=== PATIENT | female | born 1990 | race Caucasian/White ===

== ENCOUNTER 2016-08-21 13:26 | Emergency (ER) | payer BC, OTHER ==
[2016-08-21 13:42] VITALS: RESP 18; TEMP 98.2
--- NOTE | 2016-08-21 14:53 | ED ---
General Adult HPI - General Source: patient, RN notes reviewed Mode of arrival: ambulatory Limitations: no limitations <Kimberly Bailey - Last Filed: 08/21/16 15:31> <Rashaad Mckenna - Last Filed: 08/22/16 01:57> - General Chief complaint: ENT Stated complaint: cough, upper respiratory Time Seen by Provider: 08/21/16 14:43 - History of Present Illness Initial comments: This is a 26-year-old female presents with cough, congestion and a sore throat since mid-June. Patient states she is treated with amoxicillin but her symptoms have persisted. Patient states the cough is productive. Patient denies any fever/chills. Patient complains of ear fullness and mild headache. Patient denies any unexplained weight loss, fever/chills or drenching night sweats. Patient does admit to mild fatigue. Patient denies any chance of being . Patient denies any recent shortness breath, chest pain, abdominal pain, nausea/vomiting/diarrhea, back pain, numbness, tingling, hematuria, or visual changes, or any other complaints. (Kimberly Bailey) - Related Data Previous Rx's Medication Instructions Recorded Fluticasone Nasal [place] [Flonase 1 - 2 spray EA NOSTRIL DAILY #1 08/21/16 Nasal [place]] bottle Allergies Allergy/AdvReac Type Severity Reaction Status Date / Time No Known Allergies Allergy Verified 08/21/16 13:42 Review of Systems ROS Other: All systems not noted in ROS Statement are negative. <Kimberly Bailey - Last Filed: 08/21/16 15:31> ROS Other: All systems not noted in ROS Statement are negative. <Rashaad Mckenna - Last Filed: 08/22/16 01:57> ROS Statement: Those systems with pertinent positive or pertinent negative responses have been documented in the HPI. Past Medical History Past Medical History: No Reported History Additional Past Medical History / Comment(s): father has hypertension History of Any Multi-Drug Resistant Organisms: None Reported Past Surgical History: Orthopedic Surgery Additional Past Surgical History / Comment(s): Patient has had a dilation and curettage. Past Anesthesia/Blood Transfusion Reactions: No Reported Reaction Past Psychological History: No Psychological Hx Reported Smoking Status: Current every day smoker Past Alcohol Use History: None Reported Past Drug Use History: None Reported <Kimberly Bailey - Last Filed: 08/21/16 15:31> General Exam Limitations: no limitations <Kimberly Bailey - Last Filed: 08/21/16 15:31> <Rashaad Mckenna - Last Filed: 08/22/16 01:57> - General Exam Comments Initial Comments: General: The patient is awake and alert, in no distress, and does not appear acutely ill. Eye: Pupils are equal, round and reactive to light, extra-ocular movements are intact. No nystagmus. There is normal conjunctiva bilaterally. No signs of icterus. Ears: TMs with fluid present bilaterally, intact cone of light bilaterally. Normal external ear canals Nose: Nasal turbinates pink and moist Mouth and throat: Mild erythema posterior pharynx. No exudates. No tonsillar enlargement. There are moist mucous membranes and no oral lesions. Neck: There is tenderness to palpation of the anterior and cervical lymphadenopathy present bilaterally. There is an approximately 1.5 cm lymph node to the right posterior cervical chain is tender. The neck is supple, there is no JVD. Cardiovascular: There is a regular rate and rhythm. No murmur, rub or gallop is appreciated. Respiratory: Lungs are clear to auscultation, respirations are non-labored, breath sounds are equal. No wheezes, stridor, rales, or rhonchi. Musculoskeletal: Normal ROM, no tenderness. Strength 5/5. Sensation intact. Radialp Pulses equal bilaterally 2+. Neurological: A&O x 3. CN II-XII intact, There are no obvious motor or sensory deficits. Coordination appears grossly intact. Speech is normal. Skin: Skin is warm and dry and no rashes or lesions are noted. Psychiatric: Cooperative, appropriate mood & affect, normal judgment. (Kimberly Bailey) Medical Decision Making <Kimberly Bailey - Last Filed: 08/21/16 15:31> <Rashaad Mckenna - Last Filed: 08/22/16 01:57> - Medical Decision Making This is a 26-year-old female presents with cough, congestion and sore throat since mid June. On physical exam patient is afebrile in the EC. There is mild erythema posterior pharynx. Bilateral tympanic membranes with fluid present bilaterally. There is tenderness to palpation of the anterior and cervical lymphadenopathy present bilaterally. The neck is supple, there is no JVD. Chest x-ray was done and reviewed showing:No acute process. Report read by Dr. Kowalski. There is tenderness to palpation of the anterior and posterior cervical lymphadenopathy present bilaterally. There is an approximately 1.5 cm lymph node to the right posterior cervical chain is tender. The neck is supple , there is no JVD. I discussed with the patient that her chest x-ray came back no acute process. Discussed that this is most likely a viral upper respiratory infection. I discussed the risk of cancer with enlarged lymph nodes. Patient denies any unexplained weight loss, fever/chills or drenching night sweats. Patient does admit to mild fatigue. Discussed that patient may need a biopsy in the future if this lymph node does not resolve in the next 4-6 weeks. I discussed this case with attending physician Dr. Mckenna who also examined the patient and agrees with plan as stated above. I discussed return parameters. Discussed that patient should follow up with PCP in one to 2 days or return to the EC for any worsening symptoms or for any further concerns. Patient was receptive to this plan and patient will be discharged home. I discussed his case with attending physician Dr. Mckenna who agrees the plan as stated above. ( Kimberly Bailey) Disposition Time of Disposition: 15:24 <Kimberly Bailey - Last Filed: 08/21/16 15:31> <Rashaad Mckenna - Last Filed: 08/22/16 01:57> Clinical Impression: Lymphadenopathy of right cervical region, Upper respiratory infection Disposition: HOME SELF-CARE Condition: Good Instructions: Upper Respiratory Infection (ED), Lymphadenopathy (ED) Additional Instructions: Please use medication as discussed. [id number] Sudafed, nasal sprays or nasal rinses. Please follow-up with family doctor in the next 2 days of symptoms have not improved. Please return to emergency room if the symptoms increase or worsen or for any other concerns. Prescriptions: Fluticasone Nasal [place] [Flonase Nasal [place]] 1 - 2 spray EA NOSTRIL DAILY #1 bottle Referrals: Vern Alfonso MD [Primary Care Provider] - 1-2 days Yvette Ludwig MD [STAFF PHYSICIAN] - 1-2 days
--- NOTE | 2016-08-21 15:04 | XR ---
EXAMINATION TYPE: XR chest 2V DATE OF EXAM: 08/21/2016 2:59 PM COMPARISON: 10/07/2010 HISTORY: Cough FINDINGS: The lungs are clear and there is no pneumothorax, pleural effusion, or focal pneumonia. IMPRESSION: 1. No acute process.
[2016-08-21 15:30] VITALS: BP 120/72; PULSE 82
== END 2016-08-21 15:30 | disposition home or self-care (01) ==
LOC: EC 13:26
DX: J06.9 Acute upper respiratory infection, unspecified (principal); R59.9 Enlarged lymph nodes, unspecified; F17.200 Nicotine dependence, unspecified, uncomplicated
CPT/HCPCS: 71020; 99283

== ENCOUNTER 2016-10-11 08:40 | Day surgery (SDC) | payer BC, OTHER ==
[2016-10-10 12:05] VITALS: BMI 24.3
[~2016-10-11 08:40] MED LIST: DEXAMETHASONE SOD PHOSPHATE 10 MG/ML 1 ML VIAL IV ONE; DEXAMETHASONE SOD PHOSPHATE 4 MG/ML 1 ML VIAL IV ONE; FAMOTIDINE 20 MG/2 ML VIAL IV ONE; MIDAZOLAM 2 MG/2 ML VIAL IV PRN; ONDANSETRON 4 MG/2 ML VIAL IVP ONE; Pre Op ABX Message 1 EACH MISC MISCELLANE ONE; SCOPOLAMINE 1.5MG/72HR PATCH TRANSDERM ONE
[2016-10-11] MEDS ORDERED: LIDOCAINE 1% 20 ML VIAL (10MG/ML) FOR IV START INTRADERMA ONE (10:03)
[2016-10-11] MEDS: LACTATED RINGERS 1,000 ML IV SCH ×2 (10:07→12:37)
[2016-10-11] MEDS ORDERED: GLYCOPYRROLATE 0.2 MG/ML 2 ML VIAL ONE (10:24)
[2016-10-11] MEDS ORDERED: MIDAZOLAM 2 MG/2 ML VIAL ONE (10:24)
[2016-10-11] MEDS ORDERED: HYDROmorphone (PF) 1 MG/ML ONE (10:24)
[2016-10-11] MEDS ORDERED: DEXAMETHASONE SOD PHOS (MDV) 100 MG/10 ML VIAL ONE (10:24)
[2016-10-11] MEDS ORDERED: ROCURONIUM BROMIDE 10 MG/ML 10 ML VIAL IV ONE (10:24)
[2016-10-11] MEDS ORDERED: LIDOCAINE 1% INJ 10MG/ML (20 ML MDV) ONE (10:24)
[2016-10-11] MEDS ORDERED: fentaNYL (PF) 50 MCG/ML 2 ML AMP ONE (10:24)
[2016-10-11] MEDS ORDERED: PROPOFOL 10 MG/ML 20 ML VIAL IV ONE (10:24)
[2016-10-11] MEDS ORDERED: NEOSTIGMINE 1 MG/ML 10 ML VIAL ONE (10:24)
--- NOTE | 2016-10-11 11:22 | P.OP ---
Date of Procedure: 10/11/16 Preoperative Diagnosis: Chronic cryptic tonsillitis Postoperative Diagnosis: Same Procedure(s) Performed: Tonsillectomy, adenoidectomy/cauterization Anesthesia: RUFINOA Surgeon: Kranthi Estrella Estimated Blood Loss (ml): 5 Pathology: other (Bilateral tonsils) Condition: stable Disposition: PACU Indications for Procedure: Is a 26-year-old white female whose had difficulties with chronic cryptic tonsillitis with debris in the crypts which is symptomatic as well as recurrent tonsillitis Operative Findings: Tonsils +2.5 bilaterally with mild adenoid hypertrophy Description of Procedure: The patient was brought in the operative suite and placed in a supine position. The patient underwent induction of general anesthesia with oral endotracheal intubation without difficulty. The patient was prepped and draped in usual aseptic fashion. The McIvor mouth gag was placed. The soft palate was palpated and no submucous cleft was noted. Red Perkins catheters placed the right nasal cavity and pulled through the oropharynx for soft palate retraction. There was mild adenoid hypertrophy and these were vaporized with suction cautery. Good hemostasis was noted and the catheter was removed. The left tonsil was grasped with a curved Allis clamp and dissected from tonsillar fossa in a superior direction using both blunt and electrocautery dissection until the tonsil was removed. Once the tonsil was removed hemostasis gained with suction cautery. Attention was then turned to the right where the right tonsil was removed exactly as the left had been. Once this tonsils removed hemostasis was gained with suction cautery. Once hemostasis was obtained and remained good in both tonsillar fossa the patient was suctioned in oral gastric fashion the patient was allowed to emerge from general anesthesia having tolerated procedure well was extended the operating suite and transferred to postop recovery area in satisfactory condition.
[2016-10-11 11:40] VITALS: TEMP 96.9
[2016-10-11] MEDS: HYDROmorphone 1 MG/ML 1 ML SYRINGE IVP PRN ×2 (12:04→12:17)
[2016-10-11 12:32] VITALS: RESP 16
[2016-10-11 13:28] VITALS: BP 105/71; PULSE 92
[2016-10-11] MEDS ORDERED: PROMETHAZINE INJ 25 MG/ML 1 ML VIAL IVPB ONE (13:45)
== END 2016-10-11 14:27 | disposition home or self-care (01) ==
LOC: OR 08:40
PROVIDERS: ATTEND Otolaryngology
DX: J35.01 Chronic tonsillitis (principal); J45.909 Unspecified asthma, uncomplicated; F17.200 Nicotine dependence, unspecified, uncomplicated; Z79.899 Other long term (current) drug therapy
CPT/HCPCS: 81025; 88304; 42821; J2250; J1100 ×2; J2550; J2710; J2405; J2001; J3010; J1170; J2704

== ENCOUNTER 2017-02-04 22:07 | Emergency (ER) | payer BC, OTHER ==
[2017-02-04 22:21] VITALS: TEMP 99.2
--- NOTE | 2017-02-04 23:43 | ED ---
Abdominal Pain HPI - General Chief Complaint: Abdominal Pain Stated Complaint: Fall/abdominal & back pain-12 wks preg Time Seen by Provider: 02/04/17 23:01 Source: patient, RN notes reviewed Mode of arrival: ambulatory Limitations: no limitations - History of Present Illness Initial Comments: 26-year-old female presents emergency from she complaint of abdominal pain . Patient states that she is A1 currently [address] Burnette OB. Patient states today she is her birthday alliance party states that she she fell backwards onto what for. She states that she had some back pain but states that has resolved states that she has some lower abdominal pain and cramping. She states she is concerned that she is . Patient states that she had some spotting earlier today. Patient is O+ blood type. Patient denies any dysuria or hematuria. Denies any flank pain denies any head injury no LOC. - Related Data Home Medications Medication Instructions Recorded Confirmed Ekb-[id number]-Jdhnl Acid 1 cap PO HS 02/04/17 02/04/17 [-U Capsule (formulary)] Allergies Allergy/AdvReac Type Severity Reaction Status Date / Time No Known Allergies Allergy Verified 02/04/17 22:56 Review of Systems ROS Statement: Those systems with pertinent positive or pertinent negative responses have been documented in the HPI. ROS Other: All systems not noted in ROS Statement are negative. Past Medical History Past Medical History: No Reported History Additional Past Medical History / Comment(s): father has hypertension History of Any Multi-Drug Resistant Organisms: None Reported Past Surgical History: Orthopedic Surgery Additional Past Surgical History / Comment(s): dilation and curettage.,LEFT FOOT SURGERY Past Anesthesia/Blood Transfusion Reactions: No Reported Reaction Past Psychological History: Anxiety Smoking Status: Former smoker Past Alcohol Use History: None Reported Past Drug Use History: None Reported - Past Family History Mother Family Medical History: No Reported History General Exam Limitations: no limitations General appearance: alert, in no apparent distress Neck exam: Present: normal inspection. Absent: tenderness, meningismus, lymphadenopathy Respiratory exam: Present: normal lung sounds bilaterally. Absent: respiratory distress, wheezes, rales, rhonchi, stridor Cardiovascular Exam: Present: regular rate, normal rhythm, normal heart sounds. Absent: systolic murmur, diastolic murmur, rubs, gallop, clicks GI/Abdominal exam: Present: soft, tenderness (Minimal suprapubic tenderness), normal bowel sounds. Absent: distended, guarding, rebound, rigid Extremities exam: Present: normal inspection, full ROM, normal capillary refill. Absent: tenderness, pedal edema, joint swelling, calf tenderness Back exam: Present: normal inspection, full ROM, tenderness (Minimal lumbar paraspinal tenderness), paraspinal tenderness. Absent: vertebral tenderness Neurological exam: Present: alert, oriented X3, CN II-XII intact, reflexes normal. Absent: motor sensory deficit Course Vital Signs 02/04/17 22:19 Temperature 99.2 F Pulse Rate 88 Respiratory 20 Rate Blood Pressure 126/74 O2 Sat by Pulse 99 Oximetry - Reevaluation(s) Reevaluation #1: 02/04/17 23:44 I did offer x-rays of her lumbar spine secondary to mild tenderness though she declined states that she is worried about her abdominal discomfort at this time. Medical Decision Making - Medical Decision Making 26-year-old female presented for fall back abdominal pain. Patient ultrasound does not reveal any acute abnormality. Patient has positive blood type and does not require broke him. Patient states her symptoms or improvement time. She declined lumbar x-rays. Patient will follow-up Dr. Burnette. - Lab Data Lab Results 02/04/17 Range/Units 23:25 Urine Color Light Yellow Urine Appearance Clear (Clear) Urine pH 7.0 (5.0-8.0) Ur Specific [place] 1.020 (1.001-1.035) Urine Protein Negative (Negative) Urine Glucose (UA) Negative (Negative) Urine Ketones Negative (Negative) Urine Blood Negative (Negative) Urine Nitrite Negative (Negative) Urine Bilirubin Negative (Negative) Urine Urobilinogen <2.0 (<2.0) mg/dL Ur Leukocyte Esterase Negative (Negative) Disposition Clinical Impression: Abdominal pain during , Fall, Back pain Disposition: HOME SELF-CARE Condition: Stable Instructions: Abdominal Pain in (ED) Additional Instructions: Please return to the Emergency Department if symptoms worsen or any other concerns. Referrals: Yvette Ludwig MD [Primary Care Provider] - 1-2 days Time of Disposition: 01:44
[2017-02-04 23:48] LABS: Appearance,Urine Clear (Clear); Bilirubin,Urine Negative (Negative); Glucose,Urine (UA) Negative (Negative); Ketones,Urine Negative (Negative); Leukocyte Esterase,Urine Negative (Negative); Nitrite,Urine Negative (Negative); Protein,Urine Negative (Negative); UA Billing (MACRO vs. MICRO) CHEM; Urobilinogen,Urine <2.0 mg/dL (<2.0)
--- NOTE | 2017-02-05 01:40 | US ---
Ultrasound First Trimester INDICATION: Pelvic pain with vaginal spotting. LMP: 10/21/2016 with an estimated due date of 07/28/2017. COMPARISON: TECHNIQUE: Real-time transabdominal obstetrical ultrasound of the maternal pelvis and a first trimester with image documentation FINDINGS: On transabdominal imaging, the uterus measures 12.9 x 7.6 x 9 cm. A gestational sac is identified at the fundus. An embryonic pole is identified. [place]-rump length measures 6.8 cm corresponding to estimated gestational age by this ultrasound of 13 weeks, 1 days, corresponding to a sonographic J LUIS of 08/07/2017. BPD of 2.38 cm corresponding to an estimated gestational age of 14 weeks 0 days. heart rate measures 162 beats per minute. Trophoblastic reaction/placenta is identified in the posterior fundus. Cervix is long and closed, measuring 3.3 cm. The right ovary measures 3.7 x 1.7 x 3.2 cm. The left ovary measures 4 x 1.7 x 3.7 cm. The ovaries demonstrate normal grayscale and color flow. (No) free fluid is identified. IMPRESSION: Single live intrauterine gestation with an estimated gestational age by this ultrasound of 13 weeks 6 days and a heart rate of 162.
[2017-02-05 01:57] VITALS: BP 115/70; PULSE 73; RESP 16
== END 2017-02-05 01:56 | disposition home or self-care (01) ==
LOC: EC 22:07
DX: O99.89 Other specified diseases and conditions complicating pregnancy, childbirth and the puerperium (principal); R10.30 Lower abdominal pain, unspecified; M54.5 Low back pain; Z87.891 Personal history of nicotine dependence; Z3A.13 13 weeks gestation of pregnancy; Z79.899 Other long term (current) drug therapy; W18.30XA Fall on same level, unspecified, initial encounter
CPT/HCPCS: 76801; 81003; 99284

== ENCOUNTER → 2017-02-14 | Outpatient (CLI) | payer BC, OTHER ==
[2017-02-14 14:26] LABS: CH 31.1; CHCM 35.5; HDW 2.55; HGB 11.8 gm/dL (11.4-16.0); MCH 30.5 pg (25.0-35.0); MCHC 34.6 g/dL (31.0-37.0); MCV 88.2 fL (80.0-100.0); RBC 3.86 m/uL (3.80-5.40); RDW 13.3 % (11.5-15.5); WBC 7.7 k/uL (3.8-10.6)
[2017-02-14 14:28] LABS: Glucose 68 mg/dL (74-99); Non-African American GFR(MDRD) >60 (>60 ml/min/1.73 sqM)
[2017-02-14 15:00] LABS: Hepatitis B Surface Ag Index 0.05
== END | disposition home or self-care (01) ==
LOC: LABWHC1 13:33
PROVIDERS: ATTEND Obstetrics & Gynecology
DX: Z34.81 Encounter for supervision of other normal pregnancy, first trimester (principal); Z3A.00 Weeks of gestation of pregnancy not specified
CPT/HCPCS: 36415; 82565; 82947; 85027; 86762; 86780; 86850; 86900; 86901; 87340

== ENCOUNTER 2017-03-06 21:07 | Emergency (ER) | payer BC, OTHER ==
[2017-03-06] MEDS ORDERED: ACETAMINOPHEN TAB 325 MG TAB PO STA (21:46)
--- NOTE | 2017-03-06 21:53 | ED ---
Lower Extremity Injury HPI - General Chief Complaint: Extremity Injury, Lower Stated Complaint: foot injury Source: patient Mode of arrival: ambulatory Limitations: no limitations - History of Present Illness Initial Comments: 27-year-old female patient presents to emergency department today for evaluation of an injury to her left fifth toe. Patient states she was at work today and she accidentally kicked a piece of equipment injuring the toe. Patient states that it is bruised and is very painful. Patient is also 16 weeks however she denies having any abdominal pain, cramping, vaginal bleeding, or vaginal discharge. Patient also currently has an upper respiratory infection which she was seen and treated for here yesterday. Patient states that symptoms are the same and that she only needs evaluation of the toe. She denies any headache, neck pain, dizziness, weakness, chest pain, shortness of breath, rash, fever, or chills. Denies any sputum production with cough. Patient denies any numbness or tingling to the foot or toe. She denies any foot pain to states the pain is localized to the toe only. She denies any other injuries. - Related Data Home Medications Medication Instructions Recorded Confirmed Tjv-Qdph-Jsitg Acid 1 cap PO HS 02/04/17 03/06/17 [-U Capsule (formulary)] Allergies Allergy/AdvReac Type Severity Reaction Status Date / Time No Known Allergies Allergy Verified 03/06/17 21:34 Review of Systems ROS Statement: Those systems with pertinent positive or pertinent negative responses have been documented in the HPI. ROS Other: All systems not noted in ROS Statement are negative. Past Medical History Past Medical History: No Reported History Additional Past Medical History / Comment(s): father has hypertension History of Any Multi-Drug Resistant Organisms: None Reported Past Surgical History: Orthopedic Surgery, Tonsillectomy Additional Past Surgical History / Comment(s): dilation and curettage.,LEFT FOOT SURGERY Past Anesthesia/Blood Transfusion Reactions: No Reported Reaction Past Psychological History: Anxiety Smoking Status: Former smoker Past Alcohol Use History: None Reported Past Drug Use History: None Reported - Past Family History Mother Family Medical History: No Reported History General Exam Limitations: no limitations General appearance: alert, in no apparent distress Head exam: Present: atraumatic, normocephalic, normal inspection ENT exam: Present: normal exam, normal oropharynx, mucous membranes moist, TM's normal bilaterally Neck exam: Present: normal inspection. Absent: tenderness, meningismus, lymphadenopathy Respiratory exam: Present: normal lung sounds bilaterally. Absent: respiratory distress, wheezes, rales, rhonchi, stridor Cardiovascular Exam: Present: regular rate, normal rhythm, normal heart sounds. Absent: systolic murmur, diastolic murmur, rubs, gallop, clicks GI/Abdominal exam: Present: soft, normal bowel sounds, other (Gravid abdomen). Absent: distended, tenderness, guarding, rebound, rigid Extremities exam: Present: normal inspection, full ROM, tenderness (Over the left fifth toe.), normal capillary refill, other (Purple discoloration noted over the dorsal aspect of the left fifth toe.). Absent: pedal edema, joint swelling, calf tenderness Neurological exam: Present: alert, oriented X3, CN II-XII intact Psychiatric exam: Present: normal affect, normal mood Skin exam: Present: warm, dry, intact, normal color. Absent: rash Course Vital Signs 03/06/17 03/06/17 21:28 22:44 Temperature 100.1 F H 98.8 F Pulse Rate 104 H 96 Respiratory 18 16 Rate Blood Pressure 121/81 120/74 O2 Sat by Pulse 98 98 Oximetry Medical Decision Making - Medical Decision Making 27 year-old female patient presented for evaluation of left fifth toe injury. X -ray was obtained and show no acute fracture nor dislocation. Vital signs at discharge are stable. Patient instructed to take Tylenol for pain control. Instructed to ice and elevate. Eliel tape for comfort. Patient instructed to follow up with primary care physician in one to 2 days for recheck. Instructed to return immediate for any new, worsening, or concerning symptoms. Patient verbalized understanding and agreed to this plan. - Radiology Data Radiology results: report reviewed, image reviewed 3 views of the left fifth toe were obtained showed no acute fracture or dislocation. Fracture deformity of the distal aspect of the fifth proximal phalanx is seen again. Now healed fracture deformity of the distal third metatarsal. Impression by Dr. Chaudhary shows no acute fracture or dislocation. Fracture deformity of the distal aspect of the fifth proximal phalanx again seen. Now healed fracture deformity of the distal third metatarsal. Disposition Clinical Impression: Toe pain, left Disposition: HOME SELF-CARE Condition: Good Instructions: Foot Contusion (ED) Additional Instructions: Rest, ice, and elevate. Follow-up with primary care physician one to 2 days for recheck. Return immediate for any new, worsening, or concerning symptoms. Referrals: Yvette Ludwig MD [Primary Care Provider] - 1-2 days Time of Disposition: 22:41
--- NOTE | 2017-03-06 22:39 | XR ---
History: Reason: Pain Exam: XR LEFT TOE 3 views left fifth toe Comparison: Comparison 11/12/2015 FINDINGS: No acute fracture or dislocation. Fracture deformity of the distal aspect of the fifth proximal phalanx again seen. Now healed fracture deformity of the distal third metatarsal. IMPRESSION: No acute fracture or dislocation. Fracture deformity of the distal aspect of the fifth proximal phalanx again seen. Now healed fracture deformity of the distal third metatarsal.
[2017-03-06 22:45] VITALS: BP 120/74; PULSE 96; RESP 16; TEMP 98.8
== END 2017-03-06 22:50 | disposition home or self-care (01) ==
LOC: EC 21:07
DX: O99.89 Other specified diseases and conditions complicating pregnancy, childbirth and the puerperium (principal); M79.675 Pain in left toe(s); Z87.891 Personal history of nicotine dependence; Z79.899 Other long term (current) drug therapy
CPT/HCPCS: 99283

== ENCOUNTER → 2017-04-23 | Outpatient (CLI) | payer BC, OTHER ==
[2017-04-23 09:22] LABS: CHCM 33.3; HCT 37.3 % (34.0-46.0); HDW 2.61; HGB 12.3 gm/dL (11.4-16.0); MCH 30.8 pg (25.0-35.0); MCHC 32.8 g/dL (31.0-37.0); MCV 93.9 fL (80.0-100.0); Mean Platelet Volume 6.3; RBC 3.98 m/uL (3.80-5.40); RDW 13.8 % (11.5-15.5); WBC 11.8 k/uL (3.8-10.6)
== END | disposition home or self-care (01) ==
LOC: LABWHC1 07:54
PROVIDERS: ATTEND Obstetrics & Gynecology
DX: Z34.82 Encounter for supervision of other normal pregnancy, second trimester (principal); Z3A.00 Weeks of gestation of pregnancy not specified
CPT/HCPCS: 36415; 82950; 85027

== ENCOUNTER → 2017-05-02 | Outpatient (CLI) | payer BC, OTHER ==
[2017-05-02 12:21] LABS: Glucose 3 Hour, Gest 89 mg/dL
== END | disposition home or self-care (01) ==
LOC: LABWHC1 07:50
PROVIDERS: ATTEND Obstetrics & Gynecology
DX: O99.810 Abnormal glucose complicating pregnancy (principal); Z3A.00 Weeks of gestation of pregnancy not specified
CPT/HCPCS: 36415; 82951; 82952

== ENCOUNTER 2017-08-08 05:35 | Inpatient (IN) | payer BC, OTHER ==
[2017-08-08] MEDS ORDERED: OXYTOCIN 10 UNIT/ML 1 ML VIAL IM PRN (05:44)
[2017-08-08] MEDS ORDERED: CARBOPROST TROMETHAMINE 250 MCG/ML 1 ML AMP IM PRN (05:44)
[2017-08-08] MEDS ORDERED: OXYTOCIN 20 UNITS/1000 ML NS 1,000 ML IV SCH ×2 (05:44→16:59)
[2017-08-08] MEDS ORDERED: TERBUTALINE 1 MG/ML VIAL SQ PRN (05:44)
[2017-08-08] MEDS ORDERED: LIDOCAINE 1% (PF) 10 MG/ML (30 ML SDV) SQ PRN (05:44)
[2017-08-08] MEDS ORDERED: METHYLERGONOVINE 0.2 MG/ML 1 ML AMP IM PRN (05:44)
[2017-08-08] MEDS: LACTATED RINGERS 1,000 ML IV SCH ×2 (05:48→12:02)
--- NOTE | 2017-08-08 06:11 | P.HPOB ---
History of Present Illness H&P Date: 08/08/17 Chief Complaint: Patient is presenting for requested induction of labor. This patient is a pleasant 27-year-old 4 para 2 female estimated date of confinement 08/15/2017 estimated gestational age 39 weeks who presents to labor and delivery for requested induction of labor. Patient's care has been uncomplicated. Review of Systems Constitutional: Denies chills, Denies fever Gastrointestinal: Reports heartburn Genitourinary: Reports Menstruation: Reports amenorrhea Past Medical History Past Medical History: No Reported History History of Any Multi-Drug Resistant Organisms: None Reported Past Surgical History: Orthopedic Surgery, Tonsillectomy Additional Past Surgical History / Comment(s): dilation and curettage.,LEFT FOOT SURGERY Past Anesthesia/Blood Transfusion Reactions: No Reported Reaction Past Psychological History: Anxiety Smoking Status: Former smoker Past Alcohol Use History: None Reported Additional Past Alcohol Use History / Comment(s): STARTED SMOKING AT AGE 22 SMOKING 3 CIG PER DAY Past Drug Use History: None Reported - Past Family History Mother Family Medical History: No Reported History Father Family Medical History: Hypertension Medications and Allergies Home Medications Medication Instructions Recorded Confirmed Type Xjq-Mkfs-Yjvzf Acid 1 cap PO HS 02/04/17 08/08/17 History [-U Capsule (formulary)] Allergies Allergy/AdvReac Type Severity Reaction Status Date / Time No Known Allergies Allergy Verified 08/08/17 05:43 Exam - Vital Signs Vital signs: Vital Signs Temp Pulse Resp BP 08/08/17 05:54 96.8 F L 85 16 142/92 Intake and Output 08/07/17 08/07/17 08/08/17 14:59 22:59 06:59 Other: # Voids 1 Weight 85.275 kg Patient Weight 08/08/17 06:59 Weight 85.275 kg - OBG Physical Exam Abdomen: bowel sounds normal, no diffuse tenderness, no bruit present, no guarding noted, no hepatomegaly, no splenomegaly, no mass Vulva: both: normal Vagina: normal moisture, no discharge Cervix: no lesion (Cervix is 2-3 cm 50% effaced and soft.), no discharge Uterus: enlarged (Fundal height is 38 cm.) Results blood work shows she is O positive, rubella immune, RPR nonreactive, hepatitis B negative, group B strep was negative, Glucola was 133 with a normal three-hour gtt., ultrasounds have shown normal anatomy and growth. Assessment and Plan Assessment: This is a pleasant 27-year-old 4 para 2 female 39-0/7 weeks gestation who is requesting elective induction of labor. Plan is induction of labor and anticipate vaginal delivery. (1) Elective induction of labor planned Current Visit: No Status: Acute Code(s): [id number] - SNOMED Code(s): 502944272 (2) Third trimester Current Visit: Yes Status: Acute Code(s): Z34.93 - ENCNTR FOR SUPRVSN OF NORMAL PREG, UNSP, THIRD TRIMESTER SNOMED Code(s): 44568498
[2017-08-08 06:23] LABS: Basophils % (A) 0 %; Eosinophils # (A) 0.1 k/uL (0-0.7); Eosinophils % (A) 1 %; HCT 39.1 % (34.0-46.0); HGB 13.1 gm/dL (11.4-16.0); Lymphocytes # (A) 3.8 k/uL (1.0-4.8); Lymphocytes % (A) 29 %; MCH 30.7 pg (25.0-35.0); MCHC 33.6 g/dL (31.0-37.0); MCV 91.3 fL (80.0-100.0); Monocytes # (A) 0.8 k/uL (0-1.0); Monocytes % (A) 6 %; Neutrophils # (A) 8.2 k/uL (1.3-7.7); Neutrophils % (A) 62 %; Platelet Count 252 k/uL (150-450); RBC 4.29 m/uL (3.80-5.40); RDW 15.2 % (11.5-15.5); WBC 13.2 k/uL (3.8-10.6)
[2017-08-08 08:10] LABS: Prothrombin Time 9.5 sec (9.0-12.0)
[2017-08-08 08:23] LABS: ALT 47 U/L (9-52); AST 28 U/L (14-36); Alkaline Phosphatase 202 U/L (38-126); Bilirubin, Delta 0.2 mg/dL (0.0-0.2); Bilirubin,Unconjugated 0.2 mg/dL (0.0-1.1); LDH 431 U/L (313-618); Total Bilirubin 0.4 mg/dL (0.2-1.3); Total Protein 5.8 g/dL (6.3-8.2); Uric Acid 5.1 mg/dL (3.7-7.4)
[2017-08-08] MEDS ORDERED: BUTORPHANOL 1 MG/ML 1 ML VIAL IV PRN (08:30)
[2017-08-08] MEDS ORDERED: BUPIVACAINE (PF) 0.25% 25 ML, fentaNYL (PF) 200 MCG in SODIUM CHLORIDE 0.9% 71 ML EPIDURAL ONE (12:09)
[2017-08-08] MEDS ORDERED: diphenhydrAMINE 50 MG/ML 1 ML VIAL IVP PRN (16:59)
[2017-08-08] MEDS ORDERED: Acetaminophen-Codeine 300-30mg TAB PO PRN ×2 (16:59)
[2017-08-08] MEDS ORDERED: WITCH HAZEL 1 EACH MED..PAD TOPICAL PRN (16:59)
[2017-08-08] MEDS ORDERED: ACETAMINOPHEN TAB 325 MG TAB PO PRN (16:59)
[2017-08-08] MEDS ORDERED: LANOLIN CREAM 5 GM TUBE TOPICAL PRN (16:59)
[2017-08-08] MEDS ORDERED: HYDROCORTISONE 2.5% RECTAL CREAM 30 GM TUBE RECTAL PRN (16:59)
[2017-08-08] MEDS ORDERED: diphenhydrAMINE 25 MG CAP PO PRN (16:59)
[2017-08-08] MEDS ORDERED: ZOLPIDEM 5 MG TAB PO PRN (16:59)
[2017-08-08] MEDS ORDERED: SIMETHICONE 80 MG CHEWABLE PO PRN (16:59)
[2017-08-08] MEDS ORDERED: BENZOCAINE/MENTHOL SPRAY 1 GM/SPRAY AEROSOL TOPICAL PRN (16:59)
[2017-08-08] MEDS ORDERED: BISACODYL 10 MG SUPP RECTAL PRN (16:59)
--- NOTE | 2017-08-08 16:59 | P.PROBDLV ---
Vaginal Delivery Note - . Vaginal Delivery Note: Normal vaginal delivery viable male infant Apgars 9 and 9 delivery time is 1639 hrs. Please see dictated H&P for intimate details of this patient's admission. Brief summary this is a pleasant 27-year-old 4 para 2 female estimated date of confinement 08/15/2017 estimated gestational age 39 weeks who presents to labor and delivery for requested induction of labor. Of note the patient was noted to have elevated blood pressures on admission 144/96 and preeclampsia labs were done which were normal. Patient has Pitocin induction of labor and artificial rupture membranes for clear fluid. Patient's labor progresses and she does get an epidural for pain control. Patient gets to complete pushes the head to the perineum. Posterior perineum is supported and we have controlled delivery of the infant's head over the intact perineum. Mouth and nares are bulb suctioned and there is no evidence of a nuchal cord. There is a hand presentation as well however with gentle downward traction we have delivery the anterior shoulder and posterior shoulder and rest this infant's body. This is a vigorous viable male Apgars are 8 and 9 delivery time is 1639 hrs. After delivery of the infant the umbilical cord is doubly clamped and cut and appears to be trivascular. The placenta is spontaneously delivered intact. Estimated blood loss is 150 mL. Inspection of the perineum shows superficial bilateral periurethral is that do not require sutures and she has a small second-degree perineal laceration in the midline which is repaired with 3- 0 Vicryl in the usual fashion. Excellent reapproximation is noted. All counts are correct 3. There are no complications. Infant and mother are stable in delivery room.
[2017-08-08] MEDS: IBUPROFEN 600 MG TAB PO PRN (17:13)
[2017-08-08] MEDS: SENNOSIDES-DOCUSATE SODIUM 1 EACH TAB PO SCH (21:51)
[2017-08-09] MEDS: IBUPROFEN 600 MG TAB PO PRN ×3 (01:08→23:40)
--- NOTE | 2017-08-09 06:27 | P.PNOBGVD ---
Subjective - Subjective Patient reports: Reports appetite normal, Reports voiding normally, Reports pain well controlled, Reports ambulating normally : doing well Objective - Latest Vital Signs Latest vital signs: Vital Signs Temp Pulse Resp BP Pulse Ox 08/09/17 04:00 97.6 F 76 16 136/67 08/09/17 00:00 97.6 F 83 16 133/73 08/08/17 20:00 98.3 F 89 18 136/62 97 08/08/17 19:02 97.7 F 82 16 142/74 08/08/17 18:32 98 14 123/75 08/08/17 18:02 86 14 137/81 08/08/17 17:47 78 14 142/85 08/08/17 17:31 86 14 141/85 08/08/17 17:17 95 16 135/79 08/08/17 17:02 98.2 F 103 H 16 142/77 Intake and Output 08/08/17 08/08/17 08/09/17 14:59 22:59 06:59 Intake Total 2000 Balance 1999 Intake: IV 2000 Lactated Ringers 1,000 ml 2000 @ 125 mls/hr IV .Q8H [facility] Rx#:[id number] Other: # Voids 1 - Exam Lungs: bilateral: normal Chest: Normal S1, Normal S2 Extremities: Present: normal Abdomen: Present: normal appearance, soft Uterus: Present: normal, firm - Labs Labs: Abnormal Lab Results - Last 24 Hours (Table) 08/08/17 08/08/17 Range/Units 05:50 07:52 WBC 13.2 H (3.8-10.6) k/uL Neutrophils # 8.2 H (1.3-7.7) k/uL Alkaline Phosphatase 202 H (38-126) U/L Total Protein 5.8 L (6.3-8.2) g/dL Albumin 3.0 L (3.5-5.0) g/dL Assessment and Plan Assessment: day #1. Patient is resting without complaints. Vital signs are stable and blood pressures appear normal. Patient's having normal lochia. My impression is a normal course. Plan is to continue routine care discharge home tomorrow. (1) Elective induction of labor planned Current Visit: No Status: Acute Code(s): [id number] - SNOMED Code(s): 354661265 (2) Third trimester Current Visit: Yes Status: Acute Code(s): Z34.93 - ENCNTR FOR SUPRVSN OF NORMAL PREG, UNSP, THIRD TRIMESTER SNOMED Code(s): 80749478
[2017-08-09] MEDS: SENNOSIDES-DOCUSATE SODIUM 1 EACH TAB PO SCH ×2 (07:50→23:41)
--- NOTE | 2017-08-10 06:15 | P.PNOBGVD ---
Subjective - Subjective Patient reports: Reports appetite normal, Reports voiding normally, Reports pain well controlled, Reports ambulating normally : doing well Objective - Latest Vital Signs Latest vital signs: Vital Signs Temp Pulse Resp BP 08/09/17 23:43 98.1 F 91 16 131/86 08/09/17 16:00 99.1 F 70 18 137/87 08/09/17 12:00 97.8 F 91 18 120/69 08/09/17 08:00 97.4 F L 86 18 145/93 - Exam Lungs: bilateral: normal Chest: Normal S1, Normal S2 Extremities: Present: normal Abdomen: Present: normal appearance, soft Uterus: Present: normal, firm Assessment and Plan Assessment: day #1. Patient is resting without new complaints. Vital signs are stable she is afebrile. My impression this is a normal course. Plan is to continue routine care and discharge home later today. (1) Elective induction of labor planned Current Visit: No Status: Acute Code(s): [id number] - SNOMED Code(s): 409742095 (2) Third trimester Current Visit: Yes Status: Acute Code(s): Z34.93 - ENCNTR FOR SUPRVSN OF NORMAL PREG, UNSP, THIRD TRIMESTER SNOMED Code(s): 83366540
--- NOTE | 2017-08-10 06:16 | P.DS ---
Providers Date of admission: 08/08/17 05:35 Expected date of discharge: 08/10/17 Attending physician: Matt Burnette Primary care physician: Stated None - Discharge Diagnosis(es) (1) Elective induction of labor planned Current Visit: No Status: Acute (2) Third trimester Current Visit: Yes Status: Acute Hospital Course: Please see dictated H&P for intimate details of this patient's admission. Brief summary is a pleasant 27-year-old 4 para 2 female admitted to labor and delivery for elective induction of labor. Patient did have some mild blood pressure elevations on admission however preeclampsia evaluation was negative. Patient goes on have a vaginal delivery viable male infant. day #2 she is felt to be stable for discharge home follow up with me in 6 weeks. Procedures: Induction of labor and normal vaginal delivery Patient Condition at Discharge: Good Plan - Discharge Summary New Discharge Prescriptions: New Acetaminophen-Codeine 300-30mg [Tylenol w/codeine #3] 1 - 2 each PO Q4HR PRN #30 tab PRN Reason: Mild Pain exceeding Tylenol Ibuprofen [Motrin] 600 mg PO Q6HR PRN #40 tab PRN Reason: Mild Pain Or Fever >= 100.5 No Action Ybo-Lwba-Baqiz Acid [-U Capsule (formulary)] 1 cap PO HS Discharge Medication List Sfa-Pnck-Viysv Acid [-U Capsule (formulary)] 1 cap PO HS [History] Acetaminophen-Codeine 300-30mg [Tylenol w/codeine #3] 1 - 2 each PO Q4HR PRN # 30 tab 08/09/17 [Rx] Ibuprofen [Motrin] 600 mg PO Q6HR PRN #40 tab 08/09/17 [Rx] Follow up Appointment(s)/Referral(s): Matt Burnette MD [STAFF PHYSICIAN] - 09/18/17 9:15 am Patient Instructions/Handouts: Vaginal Delivery (DC) Activity/Diet/Wound Care/Special Instructions: No intercourse or anything per vagina for 6 weeks. Please call if any fever, chills, excessive vaginal bleeding, and/or abdominal pain. Discharge Disposition: HOME SELF-CARE
[2017-08-10] MEDS: SENNOSIDES-DOCUSATE SODIUM 1 EACH TAB PO SCH (07:35)
[2017-08-10 08:06] VITALS: BP 135/88; PULSE 84; RESP 18; TEMP 97.9
[2017-08-10] MEDS: IBUPROFEN 600 MG TAB PO PRN (08:41)
== END 2017-08-10 10:15 | disposition home or self-care (01) | DRG 775 ==
LOC: 4FBP 05:35
PROVIDERS: ADMIT Obstetrics & Gynecology; ATTEND Obstetrics & Gynecology
PROC: 10907ZC Drainage of Amniotic Fluid, Therapeutic from Products of Conception, Via Natural or Artificial Opening (ICD-10-PCS; principal; 2017-08-08)
PROC: 3E033VJ Introduction of Other Hormone into Peripheral Vein, Percutaneous Approach (ICD-10-PCS; principal; 2017-08-08)
PROC: 3E0R3BZ Introduction of Anesthetic Agent into Spinal Canal, Percutaneous Approach (ICD-10-PCS; principal; 2017-08-08)
PROC: 0KQM0ZZ Repair Perineum Muscle, Open Approach (ICD-10-PCS; principal; 2017-08-08)
PROC: 10E0XZZ Delivery of Products of Conception, External Approach (ICD-10-PCS; principal; 2017-08-08)
PROC: 00HU33Z Insertion of Infusion Device into Spinal Canal, Percutaneous Approach (ICD-10-PCS; principal; 2017-08-08)
DX: O70.1 Second degree perineal laceration during delivery (principal); Z37.0 Single live birth; O32.8XX0 Maternal care for other malpresentation of fetus, not applicable or unspecified; Z3A.39 39 weeks gestation of pregnancy; Z87.891 Personal history of nicotine dependence
CPT/HCPCS: 80076; 82565; 83615; 84550; 85025; 85610; 88307

== ENCOUNTER 2018-10-10 22:29 | Emergency (ER) | payer BC, OTHER ==
[2018-10-10 22:33] VITALS: TEMP 98.4
--- NOTE | 2018-10-10 23:37 | XR ---
EXAM: XR Chest, 2 Views CLINICAL HISTORY: Pain TECHNIQUE: Frontal and lateral views of the chest. COMPARISON: Chest x-ray dated 08/21/2016 FINDINGS: Lungs: Unremarkable. No consolidation. Pleural space: Unremarkable. No pneumothorax. Heart: Unremarkable. No cardiomegaly. Mediastinum: Unremarkable. Bones/joints: Unremarkable. IMPRESSION: Normal chest x-rays.
[2018-10-10 23:47] VITALS: BP 117/82; PULSE 69; RESP 16
--- NOTE | 2018-10-10 23:49 | ED ---
URI HPI - General Chief Complaint: Upper Respiratory Infection Stated Complaint: Chest pain, cold symptoms Time Seen by Provider: 10/10/18 22:46 Source: patient Mode of arrival: ambulatory Limitations: no limitations - History of Present Illness Initial Comments: Kimberly is a previously healthy 28-year-old female presents the emergency department today for evaluation of 3 days of subjective fever, cough, sore throat, rhinorrhea and generalized malaise. Patient reports she feels like she's got hit by truck. She reports that her children at home are influenza positive she is concerned that she may be influenza positive and needs a work note for tomorrow. Patient reports some sharp chest pain with coughing no exertional pain, no history of any cardiac disease. No shortness of breath. - Related Data Home Medications Medication Instructions Recorded Confirmed D-Methorphan/PE/Acetaminophen 2 cap PO Q6HR PRN 10/10/18 10/10/18 [Vicks Dayquil Liquicaps] Allergies Allergy/AdvReac Type Severity Reaction Status Date / Time No Known Allergies Allergy Verified 10/10/18 22:41 Review of Systems ROS Statement: Those systems with pertinent positive or pertinent negative responses have been documented in the HPI. ROS Other: All systems not noted in ROS Statement are negative. Past Medical History Past Medical History: No Reported History History of Any Multi-Drug Resistant Organisms: None Reported Past Surgical History: Orthopedic Surgery, Tonsillectomy Additional Past Surgical History / Comment(s): dilation and curettage.,LEFT FOOT SURGERY Past Anesthesia/Blood Transfusion Reactions: No Reported Reaction Past Psychological History: Anxiety Smoking Status: Current every day smoker Past Alcohol Use History: None Reported Past Drug Use History: None Reported - Past Family History Mother Family Medical History: No Reported History Father Family Medical History: Hypertension General Exam - General Exam Comments Initial Comments: Physical Exam GENERAL: Patient is well-developed and well-nourished. Patient is nontoxic and well-hydrated, appears uncomfortable but non-toxic HENT: Normocephalic, Atraumatic. Clear rhinorrhea EYES: PERRL, EOMI PULMONARY: Unlabored respirations. No audible rales rhonchi or wheezing was noted. CARDIOVASCULAR: There is a regular rate and rhythm without any murmurs gallops or rubs. ABDOMEN: Soft and nontender with normal bowel sounds. SKIN: Skin is clear with no lesions or rashes and otherwise unremarkable. : Deferred NEUROLOGIC: Patient is alert and oriented x3. Moving all extremities spontaneously MUSCULOSKELETAL: Normal extremities with adequate strength and full range of motion. No lower extremity swelling or edema. No calf tenderness. PSYCHIATRIC: Normal psychiatric evaluation. Limitations: no limitations Limitations: no limitations Course Vital Signs 10/10/18 10/10/18 22:31 23:46 Temperature 98.4 F Pulse Rate 89 69 Respiratory 20 16 Rate Blood Pressure 133/60 117/82 O2 Sat by Pulse 98 99 Oximetry Medical Decision Making - Medical Decision Making Patient was seen and evaluated history and physical exam are consistent with influenza as the patient has 3 children home with influenza and she has flulike symptoms Supportive care was discussed. Patient does not appear dehydrated I did offer IV fluid resuscitation however she declined she is drinking Gatorade at the time influenza is positive chest x-ray was ordered due to the patient's pleuritic chest pain, chest x-ray r eveals no signs of pneumonia or pneumothorax or any acute process Were discussed with patient is agreeable with plan for discharge home I will provide the patient with a work note for tomorrow she is not scheduled to work throughout the week and she has 3 days to rest and recover. Return parameters were discussed the importance of oral hydration supportive care with antipyretics. All questions pertaining care were answered patient was discharged home in stable condition. - Lab Data Lab Results 10/10/18 Range/Units 22:41 Influenza Type A RNA Detected H (Not Detectd) Influenza Type B (PCR) Not Detected (Not Detectd) Disposition Clinical Impression: Influenza Disposition: HOME SELF-CARE Instructions (If sedation given, give patient instructions): Upper Respiratory Infection (ED) Is patient prescribed a controlled substance at d/c from ED?: No Referrals: Yvette Ludwig MD [Primary Care Provider] - 1-2 days
== END 2018-10-11 00:04 | disposition home or self-care (01) ==
LOC: EC 22:29
DX: J11.1 Influenza due to unidentified influenza virus with other respiratory manifestations (principal); R07.81 Pleurodynia; F17.200 Nicotine dependence, unspecified, uncomplicated
CPT/HCPCS: 71046; 87502; 99285

== ENCOUNTER 2019-08-26 11:51 | Emergency (ER) | payer BC, OTHER ==
[2019-08-26 12:07] VITALS: BP 134/87; PULSE 80; RESP 20; TEMP 98.5
--- NOTE | 2019-08-26 12:24 | ED ---
General Adult HPI - General Chief complaint: Needlestick/Exposure Stated complaint: Needle stick at work Time Seen by Provider: 08/26/19 12:11 Source: patient, RN notes reviewed Mode of arrival: ambulatory Limitations: no limitations - History of Present Illness Initial comments: 29-year-old female presented emergency from chief complaint of needlestick. Patient states that she was poked by lancet yesterday from a resident at her work at [employer]. Patient states that the patient and her were seen at [facility]. Patient states she did not however based on blood work drawn and she was sent here today for this. Patient states that she was not offered pain medications and does not want any medications. She states the patient does not have any known communicable diseases including hep C or HIV. Patient states that her tetanus is up-to-date. Patient poked her left hand third digit. There was small amount blood otherwise no other injuries. - Related Data Home Medications Medication Instructions Recorded Confirmed D-Methorphan/PE/Acetaminophen 2 cap PO Q6HR PRN 10/10/18 10/10/18 [Vicks Dayquil Liquicaps] Allergies Allergy/AdvReac Type Severity Reaction Status Date / Time No Known Allergies Allergy Verified 08/26/19 12:07 Review of Systems ROS Statement: Those systems with pertinent positive or pertinent negative responses have been documented in the HPI. ROS Other: All systems not noted in ROS Statement are negative. Past Medical History Past Medical History: No Reported History Additional Past Medical History / Comment(s): father has hypertension History of Any Multi-Drug Resistant Organisms: None Reported Past Surgical History: Orthopedic Surgery, Tonsillectomy Additional Past Surgical History / Comment(s): dilation and curettage.,LEFT FOOT SURGERY Past Anesthesia/Blood Transfusion Reactions: No Reported Reaction Past Psychological History: Anxiety Smoking Status: Current every day smoker Past Alcohol Use History: None Reported Past Drug Use History: None Reported - Past Family History Mother Family Medical History: No Reported History Father Family Medical History: Hypertension General Exam Limitations: no limitations General appearance: alert, in no apparent distress Head exam: Present: atraumatic, normocephalic, normal inspection Eye exam: Present: normal appearance, PERRL, EOMI. Absent: scleral icterus, conjunctival injection, periorbital swelling ENT exam: Present: normal exam, normal oropharynx, mucous membranes moist Neck exam: Present: normal inspection, full ROM. Absent: tenderness, meningismus, lymphadenopathy Respiratory exam: Present: normal lung sounds bilaterally. Absent: respiratory distress, wheezes, rales, rhonchi, stridor Cardiovascular Exam: Present: regular rate, normal rhythm, normal heart sounds. Absent: systolic murmur, diastolic murmur, rubs, gallop, clicks Extremities exam: Present: other (Left hand third digit there is a small puncture wound noted no active bleeding) Course Vital Signs 08/26/19 12:05 Temperature 98.5 F Pulse Rate 80 Respiratory 20 Rate Blood Pressure 134/87 O2 Sat by Pulse 99 Oximetry Medical Decision Making - Medical Decision Making Patient's blood work was drawn for hepatitis C, HIV area patient was offered HIV prophylaxis patient declined. Return parameters discussed. Disposition Clinical Impression: Needle stick injury of finger Disposition: HOME SELF-CARE Condition: Stable Instructions (If sedation given, give patient instructions): Needle Stick Injuries (ED) Additional Instructions: Please return to the Emergency Department if symptoms worsen or any other concerns. Is patient prescribed a controlled substance at d/c from ED?: No Referrals: Arturo Agustin [Primary Care Provider] - 1-2 days Time of Disposition: 12:24
[2019-08-26 19:18] LABS: Hepatitis B Surface AB- Quant 203.1 mIU/mL; Hepatitis B Surface Antibody Reactive (Non-Reactive); Hepatitis C IgG Antibody Non-Reactive (Non-Reactive)
[2019-08-26 20:58] LABS: HIV 1 AB Non-Reactive (Non-Reactive); HIV 2 AB Non-Reactive (Non-Reactive); HIV AB P24 Non-Reactive (Non-Reactive); HIV P24 AG Non-Reactive (Non-Reactive)
== END 2019-08-26 12:35 | disposition home or self-care (01) ==
LOC: EC 11:51
DX: Z77.21 Contact with and (suspected) exposure to potentially hazardous body fluids (principal); S61.233A Puncture wound without foreign body of left middle finger without damage to nail, initial encounter; F17.200 Nicotine dependence, unspecified, uncomplicated; W46.0XXA Contact with hypodermic needle, initial encounter; Y99.0 Civilian activity done for income or pay
CPT/HCPCS: 36415; 86706; 86803; 87390; 99283

== ENCOUNTER 2019-08-30 23:50 | Emergency (ER) | payer BC ==
[2019-08-31] MEDS ORDERED: KETOROLAC 30 MG/ML 1 ML VIAL IVP STA (01:20)
[2019-08-31] MEDS ORDERED: ONDANSETRON 4 MG/2 ML VIAL IVP STA (01:20)
[2019-08-31] MEDS ORDERED: SODIUM CHLORIDE 0.9% 1,000 ML IV STA (01:20)
[2019-08-31 02:06] LABS: Basophils # (A) 0.1 k/uL (0-0.2); Basophils % (A) 1 %; Eosinophils # (A) 0.2 k/uL (0-0.7); Eosinophils % (A) 2 %; HCT 44.6 % (34.0-46.0); HGB 14.7 gm/dL (11.4-16.0); Lymphocytes % (A) 16 %; MCH 29.5 pg (25.0-35.0); MCV 89.3 fL (80.0-100.0); Mean Platelet Volume 6.5; Monocytes # (A) 0.4 k/uL (0-1.0); Monocytes % (A) 3 %; Neutrophils # (A) 9.2 k/uL (1.3-7.7); Neutrophils % (A) 78 %; Platelet Count 283 k/uL (150-450); RDW 12.1 % (11.5-15.5); WBC 11.9 k/uL (3.8-10.6)
[2019-08-31 02:15] VITALS: RESP 18; TEMP 98.6
--- NOTE | 2019-08-31 02:16 | XR ---
EXAMINATION TYPE: XR KUB DATE OF EXAM: 08/31/2019 COMPARISON: NONE HISTORY: Abdominal pain TECHNIQUE: 2 views FINDINGS: 2 views upright were obtained and show some intestinal fluid levels in the large bowel. The re is no evidence of free air. There is no pathologic calcifications over the kidneys. Lung bases are clear. There is no sign of a mass. IMPRESSION: There are a few large bowel fluid levels that could relate to diarrhea. No free air.
--- NOTE | 2019-08-31 02:17 | XR ---
EXAMINATION TYPE: XR shoulder complete RT DATE OF EXAM: 08/31/2019 COMPARISON: NONE HISTORY: Shoulder pain TECHNIQUE: 3 views FINDINGS: I see no fracture nor dislocation. Glenohumeral joint is intact. There are no pathologic ca lcifications. IMPRESSION: Negative right shoulder exam.
[2019-08-31 02:26] LABS: Appearance,Urine Clear (Clear); Bilirubin,Urine Negative (Negative); Blood,Urine Negative (Negative); Color,Urine Yellow; Glucose,Urine (UA) Negative (Negative); Ketones,Urine Negative (Negative); Leukocyte Esterase,Urine Negative (Negative); Nitrite,Urine Negative (Negative); PH, Urine 5.5 (5.0-8.0); Protein,Urine Trace (Negative); Specific Gravity,Urine 1.026 (1.001-1.035); Urobilinogen,Urine <2.0 mg/dL (<2.0)
[2019-08-31 02:30] LABS: ALT 30 U/L (4-34); AST 23 U/L (14-36); African American GFR (CKD) >90 (>60 ml/min/1.73 sqM); Albumin 4.5 g/dL (3.5-5.0); Alkaline Phosphatase 85 U/L (38-126); Anion Gap 9 mmol/L; Blood Urea Nitrogen 14 mg/dL (7-17); Calcium 9.2 mg/dL (8.4-10.2); Carbon Dioxide 24 mmol/L (22-30); Chloride 102 mmol/L (98-107); Glucose 94 mg/dL (74-99); Non-African American GFR(CKD) >90 (>60 ml/min/1.73 sqM); Sodium 135 mmol/L (137-145); Total Bilirubin 0.6 mg/dL (0.2-1.3); Total Protein 7.5 g/dL (6.3-8.2)
[2019-08-31] MEDS ORDERED: DICYCLOMINE 20 MG TAB PO STA (02:52)
[2019-08-31] MEDS ORDERED: ONDANSETRON 4 MG ODT STARTER PACK 2 TAB BTL PO STA (02:52)
--- NOTE | 2019-08-31 02:57 | ED ---
Nausea/Vomiting/Diarrhea HPI - General Chief complaint: Nausea/Vomiting/Diarrhea Stated complaint: Nausea, Vomiting Time Seen by Provider: 08/31/19 00:54 Source: patient Mode of arrival: ambulatory Limitations: no limitations - History of Present Illness Initial comments: 29-year-old female patient presents to the emergency department today for evaluation of nausea, vomiting, diarrhea. Patient that she's been sick since around 7 PM. Patient states she's had numerous episodes of both vomiting and diarrhea. States she is having some lower abdominal cramping. Denies any hematuria, dysuria, urinary frequency, urinary urgency. Denies any chance of . Denies any recent travel but states her children have been sick with similar symptoms. She denies taking any medication for her symptoms. Denies any hematochezia, melena, or hematemesis. She is also reporting right shoulder pain and discomfort. States she's had this pain for over a month. Denies any numbness or tingling to the arm or hand. States she does have difficulty with abducting her arm. Patient denies any recent rash, fever, chills, shortness breath, chest pain, back pain, numbness, tingling, dizziness, weakness, headache, visual changes, or any other complaints. - Related Data Previous Rx's Medication Instructions Recorded Dicyclomine [Bentyl] 20 mg PO QID #12 tablet 08/31/19 Naproxen [EC-Naprosyn] 500 mg PO BID PRN #30 tablet. 08/31/19 Ondansetron [Zofran ODT] 4 mg PO Q8HR PRN #20 tab 08/31/19 Allergies Allergy/AdvReac Type Severity Reaction Status Date / Time No Known Allergies Allergy Verified 08/31/19 00:21 Review of Systems ROS Statement: Those systems with pertinent positive or pertinent negative responses have been documented in the HPI. ROS Other: All systems not noted in ROS Statement are negative. Past Medical History Past Medical History: No Reported History Additional Past Medical History / Comment(s): father has hypertension History of Any Multi-Drug Resistant Organisms: None Reported Past Surgical History: Orthopedic Surgery, Tonsillectomy Additional Past Surgical History / Comment(s): dilation and curettage.,LEFT FOOT SURGERY Past Anesthesia/Blood Transfusion Reactions: No Reported Reaction Past Psychological History: Anxiety Smoking Status: Current every day smoker Past Alcohol Use History: None Reported Past Drug Use History: None Reported - Past Family History Mother Family Medical History: No Reported History Father Family Medical History: Hypertension General Exam Limitations: no limitations General appearance: alert, in no apparent distress, other (This is a well- developed, well-nourished adult female patient in no acute distress. Vital si gns upon presentation are temperature 98.4F, pulse 100, respirations 16, blood pressure 129/90, pulse ox 98% on room air.) Eye exam: Present: normal appearance, PERRL, EOMI. Absent: scleral icterus, conjunctival injection, periorbital swelling ENT exam: Present: normal exam, normal oropharynx, mucous membranes moist Respiratory exam: Present: normal lung sounds bilaterally. Absent: respiratory distress, wheezes, rales, rhonchi, stridor Cardiovascular Exam: Present: regular rate, normal rhythm, normal heart sounds. Absent: systolic murmur, diastolic murmur, rubs, gallop, clicks GI/Abdominal exam: Present: soft, tenderness (Mild midepigastric tenderness), normal bowel sounds. Absent: distended, guarding, rebound, rigid Extremities exam: Present: normal inspection, normal capillary refill, other (Skin to the right upper extremity is pink, warm, dry. Cap refills less than 3 seconds. Radial pulses 2+ and equal bilaterally.). Absent: full ROM (Decreased abduction about 90.), tenderness, pedal edema, joint swelling, calf tenderness Neurological exam: Present: alert, oriented X3, CN II-XII intact Psychiatric exam: Present: normal affect, normal mood Skin exam: Present: warm, dry, intact, normal color. Absent: rash Course Vital Signs 08/31/19 08/31/19 08/31/19 00:17 02:14 03:17 Temperature 98.4 F 98.6 F Pulse Rate 100 71 83 Respiratory 16 18 18 Rate Blood Pressure 129/90 127/88 118/83 O2 Sat by Pulse 98 100 98 Oximetry Medical Decision Making - Medical Decision Making 29-year-old female patient presents to the emergency department today for evaluation of nausea, vomiting, diarrhea. Physical examination did reveal mild midepigastric tenderness. Labs reviewed and did reveal elevated white blood cell count at 11.9, this is felt to be reactive from vomiting. The remainder of labs are unremarkable. Patient is not . Patient is also reporting some right shoulder discomfort for the last month. X-ray was negative. Symptoms seem most consistent with gastroenteritis. She'll be discharged with Zofran, Bentyl, and naproxen for the shoulder. She is educated regarding advancement of diet. She is instructed follow up with her primary care physician for recheck in 1-2 days. Return parameters were discussed in detail. She verbalizes understanding and agrees with this plan. - Lab Data Result diagrams: 08/31/19 01:49 08/31/19 01:49 Lab Results 08/31/19 08/31/19 08/31/19 Range/Units 01:49 01:49 01:49 WBC 11.9 H (3.8-10.6) k/uL RBC 5.00 (3.80-5.40) m/uL Hgb 14.7 (11.4-16.0) gm/dL Hct 44.6 (34.0-46.0) % MCV 89.3 (80.0-100.0) fL MCH 29.5 (25.0-35.0) pg MCHC 33.0 (31.0-37.0) g/dL RDW 12.1 (11.5-15.5) % Plt Count 283 (150-450) k/uL Neutrophils % 78 % Lymphocytes % 16 % Monocytes % 3 % Eosinophils % 2 % Basophils % 1 % Neutrophils # 9.2 H (1.3-7.7) k/uL Lymphocytes # 2.0 (1.0-4.8) k/uL Monocytes # 0.4 (0-1.0) k/uL Eosinophils # 0.2 (0-0.7) k/uL Basophils # 0.1 (0-0.2) k/uL Sodium 135 L (137-145) mmol/L Potassium 4.0 (3.5-5.1) mmol/L Chloride 102 (98-107) mmol/L Carbon Dioxide 24 (22-30) mmol/L Anion Gap 9 mmol/L BUN 14 (7-17) mg/dL Creatinine 0.62 (0.52-1.04) mg/dL Est GFR (CKD-EPI)AfAm >90 (>60 ml/min/1.73 sqM) Est GFR (CKD-EPI)NonAf >90 (>60 ml/min/1.73 sqM) Glucose 94 (74-99) mg/dL Calcium 9.2 (8.4-10.2) mg/dL Total Bilirubin 0.6 (0.2-1.3) mg/dL AST 23 (14-36) U/L ALT 30 (4-34) U/L Alkaline Phosphatase 85 (38-126) U/L Total Protein 7.5 (6.3-8.2) g/dL Albumin 4.5 (3.5-5.0) g/dL Lipase 57 (23-300) U/L Urine Color Urine Appearance (Clear) Urine pH (5.0-8.0) Ur Specific Hamer (1.001-1.035) Urine Protein (Negative) Urine Glucose (UA) (Negative) Urine Ketones (Negative) Urine Blood (Negative) Urine Nitrite (Negative) Urine Bilirubin (Negative) Urine Urobilinogen (<2.0) mg/dL Ur Leukocyte Esterase (Negative) Urine HCG, Qual Not Detected (Not Detectd) 08/31/19 Range/Units 01:49 WBC (3.8-10.6) k/uL RBC (3.80-5.40) m/uL Hgb (11.4-16.0) gm/dL Hct (34.0-46.0) % MCV (80.0-100.0) fL MCH (25.0-35.0) pg MCHC (31.0-37.0) g/dL RDW (11.5-15.5) % Plt Count (150-450) k/uL Neutrophils % % Lymphocytes % % Monocytes % % Eosinophils % % Basophils % % Neutrophils # (1.3-7.7) k/uL Lymphocytes # (1.0-4.8) k/uL Monocytes # (0-1.0) k/uL Eosinophils # (0-0.7) k/uL Basophils # (0-0.2) k/uL Sodium (137-145) mmol/L Potassium (3.5-5.1) mmol/L Chloride (98-107) mmol/L Carbon Dioxide (22-30) mmol/L Anion Gap mmol/L BUN (7-17) mg/dL Creatinine (0.52-1.04) mg/dL Est GFR (CKD-EPI)AfAm (>60 ml/min/1.73 sqM) Est GFR (CKD-EPI)NonAf (>60 ml/min/1.73 sqM) Glucose (74-99) mg/dL Calcium (8.4-10.2) mg/dL Total Bilirubin (0.2-1.3) mg/dL AST (14-36) U/L ALT (4-34) U/L Alkaline Phosphatase (38-126) U/L Total Protein (6.3-8.2) g/dL Albumin (3.5-5.0) g/dL Lipase (23-300) U/L Urine Color Yellow Urine Appearance Clear (Clear) Urine pH 5.5 (5.0-8.0) Ur Specific Hamer 1.026 (1.001-1.035) Urine Protein Trace H (Negative) Urine Glucose (UA) Negative (Negative) Urine Ketones Negative (Negative) Urine Blood Negative (Negative) Urine Nitrite Negative (Negative) Urine Bilirubin Negative (Negative) Urine Urobilinogen <2.0 (<2.0) mg/dL Ur Leukocyte Esterase Negative (Negative) Urine HCG, Qual (Not Detectd) - Radiology Data Radiology results: report reviewed, image reviewed 3 views of the right shoulder obtained. Report was reviewed in its entirety. Impression by Dr. Mcgarry shows negative right shoulder exam. 2 views of the abdomen are obtained. Report reviewed in its entirety. Impression by Dr. Mcgarry shows a few large bowel fluid levels that could relate to diarrhea. No free air. Disposition Clinical Impression: Vomiting and diarrhea, Right shoulder pain Disposition: HOME SELF-CARE Condition: Good Instructions (If sedation given, give patient instructions): Rotator Cuff Injury (ED), Acute Nausea and Vomiting (ED), Acute Diarrhea (ED) Additional Instructions: Medications as directed. Start with clear liquid diet and advance as tolerated. Follow-up with your primary care physician for recheck in 1-2 days. Follow up with curriculum specialist as soon as possible. Return to the emergency department immediately for any new, worsening, or concerning symptoms. Prescriptions: Dicyclomine [Bentyl] 20 mg PO QID #12 tablet Naproxen [EC-Naprosyn] 500 mg PO BID PRN #30 tablet.dr PRN Reason: Pain Ondansetron [Zofran ODT] 4 mg PO Q8HR PRN #20 tab PRN Reason: Nausea Is patient prescribed a controlled substance at d/c from ED?: No Referrals: Arturo Agustin [Primary Care Provider] - 1-2 days Han Le MD [STAFF PHYSICIAN] - 1-2 days Time of Disposition: 02:57
[2019-08-31 03:18] VITALS: BP 118/83; PULSE 83
== END 2019-08-31 03:22 | disposition home or self-care (01) ==
LOC: EC 23:50
DX: R11.10 Vomiting, unspecified (principal); R19.7 Diarrhea, unspecified; M25.511 Pain in right shoulder; F17.200 Nicotine dependence, unspecified, uncomplicated
CPT/HCPCS: 36415; 80053; 83690; 85025; 81003; 81025; 73030; 74018; 99284; 96374; 96375; 96361; J2405; J1885; S0119

== ENCOUNTER → 2020-03-02 | Outpatient (CLI) | payer BC | END | disposition home or self-care (01) | LOC: LABWHC1 08:44 | PROVIDERS: ATTEND Family Medicine | DX: J06.9 Acute upper respiratory infection, unspecified (principal) | CPT/HCPCS: U0003; C9803 ==

== ENCOUNTER → 2020-11-17 | Outpatient (CLI) | payer BC, OTHER ==
--- NOTE | 2020-11-17 15:34 | US ---
EXAMINATION TYPE: Transabdominal DATE OF EXAM: 11/17/2020 3:06 PM COMPARISON: NONE CLINICAL HISTORY: Z36 Confirm dates. EXAM PERFORMED: EXAM MEASUREMENTS: GESTATIONAL AGE / DATING Physician Established: (10 weeks/3 days) EDC: 06-12-21 Dates by LMP: (10 weeks/3 days) EDC: 06-12-21 Dates by First Scan: No previous this is first scan Dates by Current Scan for: (10 weeks/5 days) EDC: 06-10-21 MATERNAL ANATOMY Uterus: 10.7 x 6.5 x 9.0cm Right Ovary: 2.1 x 2.1 x 1.7cm Left Ovary: not visualized Post CDS / Adnexa: wnl Presence of free fluid: no GESTATION / SURVEY CRL: 3.8cm (10 weeks/5 days) Yolk Sac (normal less than 6mm): 3mm Heart Rate: 163 bpm Rhythm: Normal IUP: Viable IUP Age Appropriate Anatomy Cord Insertion: Visualized Limbs: Visualized Date of LMP: 09-05-20 IMPRESSION: Single viable uterine .
== END | disposition home or self-care (01) ==
LOC: RADUSWWP 14:45
PROVIDERS: ATTEND Obstetrics & Gynecology
DX: Z36.9 Encounter for antenatal screening, unspecified (principal); Z3A.10 10 weeks gestation of pregnancy
CPT/HCPCS: 76801

== ENCOUNTER 2021-06-06 05:50 | Inpatient (IN) | payer OTHER ==
--- NOTE | 2021-06-05 17:22 | P.HPOB ---
History of Present Illness H&P Date: 06/05/21 Chief Complaint: Requested induction of labor. This patient is a pleasant 31-year-old 5 para 3 female estimated date of confinement 06/12/2021 estimated gestational age 39 and one sevenths weeks who presents to labor and delivery with requested induction of labor. Patient's care has been uncomplicated. She is uncomfortable as requested induction at this time. Review of Systems Genitourinary: Reports Menstruation: Reports amenorrhea Past Medical History Past Medical History: No Reported History Additional Past Medical History / Comment(s): father has hypertension History of Any Multi-Drug Resistant Organisms: None Reported Past Surgical History: Orthopedic Surgery, Tonsillectomy Additional Past Surgical History / Comment(s): dilation and curettage.,LEFT FOOT SURGERY Past Anesthesia/Blood Transfusion Reactions: No Reported Reaction Past Psychological History: Anxiety Past Alcohol Use History: None Reported Past Drug Use History: None Reported - Past Family History Mother Family Medical History: No Reported History Father Family Medical History: Hypertension Medications and Allergies Home Medications Medication Instructions Recorded Confirmed Type Dicyclomine [Bentyl] 20 mg PO QID #12 tablet 08/31/19 Rx Naproxen [EC-Naprosyn] 500 mg PO BID PRN #30 tablet. 08/31/19 Rx Ondansetron [Zofran ODT] 4 mg PO Q8HR PRN #20 tab 08/31/19 Rx Allergies Allergy/AdvReac Type Severity Reaction Status Date / Time No Known Allergies Allergy Verified 08/31/19 00:21 Exam - OBG Physical Exam Abdomen: bowel sounds normal, no diffuse tenderness, no bruit present, no guarding noted, no hepatomegaly, no splenomegaly, no mass Vulva: both: normal Vagina: normal moisture, no discharge Cervix: no lesion (Cervix is 2 cm and thick.), no discharge Uterus: enlarged Results blood work shows she is O positive, rubella immune, RPR nonreactive, hepatitis B is negative, HIV is nonreactive, group B strep was negative, ultrasounds have been normal. Assessment and Plan Assessment: This is a pleasant 31-year-old 5 para 3 female 39 and one sevenths weeks gestation who is admitted to labor and delivery for requested elective induction of labor. Plan is induction of labor and anticipate vaginal delivery. (1) 39 weeks gestation of Status: Acute Code(s): Z3A.39 - 39 WEEKS GESTATION OF SNOMED Code(s): 55882596 (2) Elective induction of labor planned Status: Acute Code(s): CJM5550 - SNOMED Code(s): 902884864
[2021-06-06] MEDS ORDERED: OXYTOCIN 10 UNIT/ML 1 ML VIAL IM PRN (06:01)
[2021-06-06] MEDS ORDERED: CARBOPROST TROMETHAMINE 250 MCG/ML 1 ML AMP IM PRN (06:01)
[2021-06-06] MEDS ORDERED: METHYLERGONOVINE 0.2 MG/ML 1 ML AMP IM PRN (06:01)
[2021-06-06] MEDS ORDERED: TERBUTALINE 1 MG/ML VIAL SQ PRN (06:01)
[2021-06-06] MEDS ORDERED: LIDOCAINE 0.5% (PF) 5 MG/ML (50 ML SDV) SQ PRN (06:01)
[2021-06-06] MEDS ORDERED: OXYTOCIN 30 UNITS/500 ML NS 30 UNIT in SALINE 1 500ML.BAG IV SCH ×2 (06:01→12:50)
[2021-06-06] MEDS: LACTATED RINGERS 1,000 ML IV SCH ×2 (06:09→09:37)
[2021-06-06 06:15] LABS: Basophils % (A) 0 %; Eosinophils # (A) 0.1 k/uL (0-0.7); Eosinophils % (A) 1 %; HCT 35.4 % (34.0-46.0); HGB 12.1 gm/dL (11.4-16.0); Lymphocytes # (A) 2.9 k/uL (1.0-4.8); Lymphocytes % (A) 30 %; MCH 31.1 pg (25.0-35.0); MCHC 34.2 g/dL (31.0-37.0); Mean Platelet Volume 7.3; Monocytes # (A) 0.5 k/uL (0-1.0); Monocytes % (A) 5 %; Neutrophils # (A) 5.9 k/uL (1.3-7.7); Neutrophils % (A) 61 %; Platelet Count 258 k/uL (150-450); RDW 13.4 % (11.5-15.5); WBC 9.6 k/uL (3.8-10.6)
[2021-06-06 07:23] LABS: Basophils % (A) 0 %; Eosinophils % (A) 1 %; HCT 34.8 % (34.0-46.0); HGB 11.8 gm/dL (11.4-16.0); Lymphocytes # (A) 2.5 k/uL (1.0-4.8); Lymphocytes % (A) 26 %; MCH 30.3 pg (25.0-35.0); MCHC 33.8 g/dL (31.0-37.0); MCV 89.7 fL (80.0-100.0); Mean Platelet Volume 7.6; Monocytes # (A) 0.5 k/uL (0-1.0); Monocytes % (A) 5 %; Neutrophils # (A) 6.1 k/uL (1.3-7.7); Neutrophils % (A) 65 %; Platelet Count 250 k/uL (150-450); RBC 3.88 m/uL (3.80-5.40); RDW 13.4 % (11.5-15.5); WBC 9.4 k/uL (3.8-10.6)
[2021-06-06 07:38] LABS: INR 0.9 (<1.2); Partial Thromboplastin Time 24.4 sec (22.0-30.0); Prothrombin Time 9.8 sec (9.0-12.0)
[2021-06-06 07:40] LABS: ALT 22 U/L (4-34); AST 25 U/L (14-36); African American GFR (CKD) >90 (>60 ml/min/1.73 sqM); Blood Urea Nitrogen 8 mg/dL (7-17); LDH 370 U/L (313-618); Magnesium 1.5 mg/dL (1.6-2.3); Non-African American GFR(CKD) >90 (>60 ml/min/1.73 sqM); Uric Acid 3.9 mg/dL (3.7-7.4)
[2021-06-06] MEDS ORDERED: fentaNYL (PF) 50 MCG/ML 5 ML AMP ONE (09:39)
[2021-06-06] MEDS ORDERED: ROPIVACAINE 5MG/ML 20ML VIAL ONE (09:39)
[2021-06-06] MEDS ORDERED: SODIUM CHLORIDE 0.9% 100 ML BAG ONE (09:39)
[2021-06-06] MEDS ORDERED: bisacodyL 10 MG SUPP RECTAL PRN (12:50)
[2021-06-06] MEDS ORDERED: ACETAMINOPHEN TAB 325 MG TAB PO PRN (12:50)
[2021-06-06] MEDS ORDERED: HYDROCORTISONE 2.5% RECTAL CREAM 30 GM TUBE RECTAL PRN (12:50)
[2021-06-06] MEDS ORDERED: diphenhydrAMINE 50 MG/ML 1 ML VIAL IVP PRN (12:50)
[2021-06-06] MEDS ORDERED: ZOLPIDEM 5 MG TAB PO PRN (12:50)
[2021-06-06] MEDS ORDERED: SIMETHICONE 80 MG CHEWABLE PO PRN (12:50)
[2021-06-06] MEDS ORDERED: BENZOCAINE/MENTHOL SPRAY 1 GM/SPRAY AEROSOL TOPICAL PRN (12:50)
[2021-06-06] MEDS ORDERED: LANOLIN CREAM 5 GM TUBE TOPICAL PRN (12:50)
[2021-06-06] MEDS ORDERED: diphenhydrAMINE 25 MG CAP PO PRN (12:50)
[2021-06-06] MEDS: IBUPROFEN 600 MG TAB PO PRN ×2 (15:11→21:38)
--- NOTE | 2021-06-06 18:44 | P.PROBDLV ---
Vaginal Delivery Note - . Vaginal Delivery Note: Normal vaginal delivery viable male infant Apgars 9 and 9 delivery time is 1247 hrs. Please see dictated H&P for intimate details of this patient's admission. Brief summary this is a pleasant 31-year-old 4 para 3 female 39 and one sevenths weeks gestation admitted to labor and delivery requesting induction of labor. On admission patient is to simmers does artificial rupture membranes clear fluid. Labor progresses quickly she does get an epidural for pain control. Patient pushes the head to the perineum the posterior perineum is supported. We have controlled delivery of the 's head over the intact perineum. Mouth and nares are bulb suctioned. There is a nuchal cord 2. This is reduced. With gentle downward traction we then have deliver the anterior and posterior shoulder and rest this infant's body. The vigorous viable male infant Apgars are 9 and 9 delivery time is 1247 hrs. After delivery of the infant the umbilical cord is immediately doubly clamped and cut due to history of jaundice. Placenta is then spontaneously delivered intact. Estimated blood loss 100 mL. No lacerations and no repairs required. and mother are stable in delivery room.
[2021-06-06] MEDS: SENNOSIDES-DOCUSATE SODIUM 1 EACH TAB PO SCH (19:27)
[2021-06-07] MEDS: IBUPROFEN 600 MG TAB PO PRN ×2 (05:04→11:00)
--- NOTE | 2021-06-07 05:34 | P.PNOBGVD ---
Subjective - Subjective Patient reports: Reports appetite normal, Reports voiding normally, Reports pain well controlled, Reports ambulating normally : doing well Objective - Latest Vital Signs Latest vital signs: Vital Signs Temp Pulse Resp BP Pulse Ox 06/07/21 00:00 98.3 F 72 16 146/89 06/06/21 19:52 97.6 F 97 16 131/75 98 06/06/21 15:45 93 16 133/72 06/06/21 14:55 80 16 133/81 06/06/21 14:25 78 16 141/80 06/06/21 13:55 90 16 131/77 06/06/21 13:40 95 16 148/78 06/06/21 13:25 93 16 130/74 06/06/21 13:10 81 16 127/88 06/06/21 12:55 96.9 F L 108 H 16 124/84 06/06/21 05:59 96.9 F L 88 18 154/87 99 Intake and Output 06/06/21 06/06/21 06/07/21 14:59 22:59 06:59 Other: Voiding Method Toilet # Voids 2 - Exam Lungs: bilateral: normal Chest: Normal S1, Normal S2 Extremities: Present: normal Abdomen: Present: normal appearance, soft Uterus: Present: normal, firm - Labs Labs: Abnormal Lab Results - Last 24 Hours (Table) 06/06/21 06/06/21 Range/Units 06:25 06:25 Fibrinogen 548 H (200-500) mg/dL Creatinine 0.44 L (0.52-1.04) mg/dL Magnesium 1.5 L (1.6-2.3) mg/dL Assessment and Plan Assessment: day #1. She is resting without complaints and wishes to go home. Vital signs are stable and she is afebrile. Uterus is firm nontender and she is having normal lochia. My impression this is a normal course. Plan is to continue routine care and discharge home later today. (1) 39 weeks gestation of Current Visit: No Status: Acute Code(s): Z3A.39 - 39 WEEKS GESTATION OF SNOMED Code(s): 25491972 (2) Elective induction of labor planned Current Visit: No Status: Acute Code(s): ACO0145 - SNOMED Code(s): 316440540
--- NOTE | 2021-06-07 05:39 | P.DS ---
Providers Date of admission: 06/06/21 05:50 Expected date of discharge: 06/07/21 Attending physician: Matt Burnette Primary care physician: Arturo Agustin - Discharge Diagnosis(es) (1) 39 weeks gestation of Current Visit: No Status: Acute (2) Elective induction of labor planned Current Visit: No Status: Acute Hospital Course: Please see dictated H&P for intimate details of this patient's admission. Brief summary this is a pleasant 31-year-old 5 para 3 female 39 and one sevenths weeks gestation admitted to labor and delivery for elective induction of labor. Patient is admitted she is uncomplicated induction of labor quickly goes on to have a vaginal delivery viable male . Please see dictated delivery note. day #1 patient is without complaints and wishes to go home. Patient's felt be stable for discharge home follow up with me in 6 weeks. Procedures: Induction of labor and normal vaginal delivery Patient Condition at Discharge: Good Plan - Discharge Summary New Discharge Prescriptions: New Ibuprofen [Motrin] 600 mg PO Q6HR PRN #30 tab PRN Reason: Pain No Action Pnv No.95/Ferrous Fum/Folic AC [ Multivitamin Tablet] 1 tab PO DAILY Discharge Medication List Pnv No.95/Ferrous Fum/Folic AC [ Multivitamin Tablet] 1 tab PO DAILY 06/06/21 [History] Ibuprofen [Motrin] 600 mg PO Q6HR PRN #30 tab 06/07/21 [Rx] Follow up Appointment(s)/Referral(s): Matt Burnette MD [STAFF PHYSICIAN] - 07/21/21 11:15 am Patient Instructions/Handouts: Vaginal Delivery (DC) Activity/Diet/Wound Care/Special Instructions: No intercourse or anything per vagina for 6 weeks. Please call if any fever, ch ills, excessive vaginal bleeding, and/or abdominal pain. Discharge Disposition: HOME SELF-CARE
[2021-06-07] MEDS: SENNOSIDES-DOCUSATE SODIUM 1 EACH TAB PO SCH (09:11)
[2021-06-07 09:30] VITALS: BP 134/92; PULSE 79; RESP 14; TEMP 97.9
== END 2021-06-07 14:45 | disposition home or self-care (01) | DRG 807 ==
LOC: 4FBP 05:50
PROVIDERS: ADMIT Obstetrics & Gynecology; ATTEND Obstetrics & Gynecology
PROC: 10E0XZZ Delivery of Products of Conception, External Approach (ICD-10-PCS; principal; 2021-06-06)
PROC: 3E033VJ Introduction of Other Hormone into Peripheral Vein, Percutaneous Approach (ICD-10-PCS; 2021-06-06)
PROC: 10907ZC Drainage of Amniotic Fluid, Therapeutic from Products of Conception, Via Natural or Artificial Opening (ICD-10-PCS; 2021-06-06)
DX: O69.81X0 Labor and delivery complicated by cord around neck, without compression, not applicable or unspecified (principal); Z37.0 Single live birth; O99.344 Other mental disorders complicating childbirth; F41.9 Anxiety disorder, unspecified; Z20.822 Contact with and (suspected) exposure to COVID-19; Z3A.39 39 weeks gestation of pregnancy; Z79.899 Other long term (current) drug therapy
CPT/HCPCS: 82565; 83615; 83735; 84450; 84460; 84520; 84550; 85025; 85384; 85610; 85730; 86850; 86900; 86901

== ENCOUNTER 2023-06-13 22:55 | Emergency (ER) | payer BC, OTHER ==
[2023-06-13 23:14] VITALS: RESP 18
[2023-06-13] MEDS ORDERED: DEXAMETHASONE SOD PHOSPHATE 10 MG/ML 1 ML VIAL IM STA (23:20)
--- NOTE | 2023-06-14 00:46 | ED ---
URI HPI - General Chief Complaint: Upper Respiratory Infection Stated Complaint: Throat pain Time Seen by Provider: 06/13/23 23:03 Source: patient Mode of arrival: ambulatory Limitations: no limitations - History of Present Illness Initial Comments: 33-year-old female presenting with chief complaint of URI-like symptoms. She admits to dry cough, nasal congestion, bilateral earache. She also has a prominent lymph node to the right side of the neck. No fevers or chills. She admits to sore throat, no dysphagia. No shortness of breath or chest pain. No nausea, vomiting, abdominal pain. - Related Data Previous Rx's Medication Instructions Recorded Amoxic-Pot Clav 875-125Mg 1 tab PO Q12HR 7 Days #14 tab 09/07/22 [Augmentin 875-125] Fluticasone Nasal [place] [Flonase 2 spray EA NOSTRIL DAILY #1 09/07/22 Nasal [place]] dispenser Ketorolac [Toradol] 10 mg PO Q6HR #20 tab 09/07/22 predniSONE See Taper PO DIRECTED #30 tab 09/07/22 Amoxic-Pot Clav 875-125Mg 1 tab PO Q12HR 5 Days #10 tab 06/14/23 [Augmentin 875-125] methylPREDNISolone Dose Pack 4 mg PO DIRECTED #1 packet 06/14/23 [Medrol Dose Pack] Allergies Allergy/AdvReac Type Severity Reaction Status Date / Time ampicillin [From Unasyn] Allergy Rash/Hives Verified 06/13/23 22:56 sulbactam [From Unasyn] Allergy Rash/Hives Verified 06/13/23 22:56 Review of Systems ROS Statement: Those systems with pertinent positive or pertinent negative responses have been documented in the HPI. ROS Other: All systems not noted in ROS Statement are negative. Past Medical History Past Medical History: No Reported History Additional Past Medical History / Comment(s): strep History of Any Multi-Drug Resistant Organisms: None Reported Past Surgical History: Orthopedic Surgery, Tonsillectomy Additional Past Surgical History / Comment(s): dilation and curettage.,LEFT FOOT SURGERY Past Anesthesia/Blood Transfusion Reactions: No Reported Reaction Past Psychological History: Anxiety Smoking Status: Former smoker Past Alcohol Use History: None Reported Past Drug Use History: None Reported - Past Family History Mother Family Medical History: No Reported History Father Family Medical History: Hypertension General Exam Limitations: no limitations General appearance: alert, in no apparent distress Head exam: Present: atraumatic, normocephalic, normal inspection Eye exam: Present: normal appearance, EOMI ENT exam: Present: normal oropharynx, mucous membranes moist Expanded TM/Canal exam: Effusion: Right TM, Left TM Mouth exam: Present: normal external inspection, tongue normal. Absent: drooling, trismus, muffled voice Throat exam: normal inspection Neck exam: Present: tenderness, full ROM, lymphadenopathy Respiratory exam: Present: normal lung sounds bilaterally. Absent: respiratory distress, wheezes, rales, rhonchi, stridor Cardiovascular Exam: Present: regular rate, normal rhythm, normal heart sounds. Absent: systolic murmur, diastolic murmur, rubs, gallop, clicks Neurological exam: Present: alert, oriented X3 Psychiatric exam: Present: normal affect, normal mood Skin exam: Present: warm, dry, intact, normal color. Absent: rash Course Vital Signs 06/13/23 06/13/23 06/14/23 22:56 23:58 00:56 Temperature 98.5 F 98.2 F Pulse Rate 82 73 Respiratory 18 18 18 Rate Blood Pressure 151/99 134/89 O2 Sat by Pulse 97 98 Oximetry Medical Decision Making - Medical Decision Making Was pt. sent in by a medical professional or institution ([facility]LET[facility] Arthur, SENIOR SOFTWARE SYSTEMS ENGINEER, urgent care, hospital, or skilled nursing...) When possible be specific @ -No Did you speak to anyone other than the patient for history (EMS, parent, family, police, friend...)? What history was obtained from this source @ -No Did you review nursing and triage notes (agree or disagree)? Why? @ -I reviewed and agree with nursing and triage notes Were old charts reviewed (outside hosp., previous admission, EMS record, old EKG, old radiological studies, urgent care reports/EKG's, skilled nursing records)? Report findings @ -No old charts were reviewed Differential Diagnosis (chest pain, altered mental status, abdominal pain women, abdominal pain men, vaginal bleeding, weakness, fever, dyspnea, syncope, headache, dizziness, GI bleed, back pain, seizure, CVA, palpatations, mental health, musculoskeletal)? @ -Differential includes Covid, influenza, RSV, group A strep, this is not all- inclusive list EKG interpreted by me (3pts min.). @ -As above X-rays interpreted by me (1pt min.). @ -None done CT interpreted by me (1pt min.). @ -None done U/S interpreted by me (1pt. min.). @ -None done What testing was considered but not performed or refused? (CT, X-rays, U/S, labs)? Why? @ -None What meds were considered but not given or refused? Why? @ -None Did you discuss the management of the patient with other professionals (professionals i.e. , PA, SENIOR SOFTWARE SYSTEMS ENGINEER, lab, RT, psych nurse, director of social services, industrial relations worker, teacher, student liaison officer, vocational case manager)? Give summary @ -No Was smoking cessation discussed for >3mins.? @ -No Was critical care preformed (if so, how long)? @ -No Were there social determinants of health that impacted care today? How? (Homelessness, low income, unemployed, alcoholism, drug addiction, transportation, low edu. Level, literacy, decrease access to med. care, care home, rehab)? @ -No Was there de-escalation of care discussed even if they declined (Discuss DNR or withdrawal of care, Hospice)? DNR status @ -No What co-morbidities impacted this encounter? (DM, HTN, Smoking, COPD, CAD, Cancer, CVA, ARF, Chemo, Hep., AIDS, mental health diagnosis, sleep apnea, morbid obesity)? @ -None Was patient admitted / discharged? Hospital course, mention meds given and route, prescriptions, significant lab abnormalities, going to OR and other pertinent info. @ -33-year-old female presenting with chief complaint of cough, congestion, sore throat, and lymphadenopathy. History and physical exam were conducted. Patient does have a prominent lymph node to the right side of the neck, which corresponds to the setting of viral illness. She is positive for Covid. Negative for influenza, RSV, group A strep. Patient has history of complicated pharyngitis. She is given a dose of Decadron here in the ER, sent home on Medrol Dosepak and Augmentin for prophylaxis.Follow-up with PCP. Report back to ER with any new or worsening symptoms. Discussed return parameters and answered all questions. Patient conveyed verbal understanding and agreed to the plan. I discussed this case in detail with my attending Dr. Mckenna Undiagnosed new problem with uncertain prognosis? @ -No Drug Therapy requiring intensive monitoring for toxicity (Heparin, Nitro, Insulin, Cardizem)? @ -No Were any procedures done? @ -No Diagnosis/symptom? @ -COVID-19 Acute, or Chronic, or Acute on Chronic? @ -Acute Uncomplicated (without systemic symptoms) or Complicated (systemic symptoms)? @ -Uncomplicated Side effects of treatment? @ -No Exacerbation, Progression, or Severe Exacerbation? @ -No Poses a threat to life or bodily function? How? (Chest pain, [place], [place], pneumonia, PE, COPD, DKA, ARF, appy, cholecystitis, CVA, Diverticulitis, Homicidal, Suicidal, threat to staff... and all critical care pts) @ -No - Lab Data Lab Results 06/13/23 06/13/23 Range/Units 23:36 23:36 Influenza Type A (PCR) Not Detected (Not Detectd) Influenza Type B (PCR) Not Detected (Not Detectd) RSV (PCR) Not Detected (Not Detectd) SARS-CoV-2 (PCR) Detected A (Not Detectd) Group A Strep (PCR) NOT DETECTED (Not Detectd) Disposition Clinical Impression: COVID Disposition: HOME SELF-CARE Condition: Good Instructions (If sedation given, give patient instructions): Coronavirus Disease 2019 (COVID-19), Lymphadenopathy (ED) Additional Instructions: Follow-up with PCP. Report back to ER with any new or worsening symptoms. Prescriptions: Amoxic-Pot Clav 875-125Mg [Augmentin 875-125] 1 tab PO Q12HR 5 Days #10 tab methylPREDNISolone Dose Pack [Medrol Dose Pack] 4 mg PO DIRECTED #1 packet Is patient prescribed a controlled substance at d/c from ED?: No Referrals: Nakul Shaw MD [Primary Care Provider] - 1-2 days Time of Disposition: 00:46
[2023-06-14 01:12] VITALS: BP 134/89; PULSE 73; TEMP 98.2
== END 2023-06-14 00:56 | disposition home or self-care (01) ==
LOC: EC 22:55
DX: U07.1 COVID-19 (principal); Z86.59 Personal history of other mental and behavioral disorders; Z87.891 Personal history of nicotine dependence; Z88.8 Allergy status to other drugs, medicaments and biological substances
CPT/HCPCS: 87651; 87070; 87636; 99283; 96372; J1100